=== PATIENT | female | born 1995 | race Caucasian/White ===

== ENCOUNTER → 2021-02-22 09:34 | Outpatient (CLI) | payer OTHER, SELFPAY ==
--- NOTE | 2021-02-22 09:38 | DI.US.S_ITS ---
PROCEDURE: US OB <= 14 WEEKS FETUS INDICATIONS: Early dating viability OUTSIDE/PRIOR DATING DATA: Last menstrual period (LMP): 12/12/2020 LMP-based estimated date of delivery (VIVEK): 09/18/2021. First dating scan (date and location): 02/22/2021. Estimated date of delivery (VIVEK) from first dating scan: 10/18/2021. TECHNIQUE: Real-time scanning was performed of the fetus and maternal pelvic organs, with image documentation. Endovaginal scanning was also performed to better visualize the fetus and maternal ovaries. COMPARISON: None. FINDINGS: Embryo: Mean sac diameter of 12 mm corresponding to 6 weeks 0 days. Normal yolk sac. No pole at this time. Heart rate: N/a Measurement variability in dating: +/- 4 weeks by LMP, +/- 7 days by mean sac diameter (use before 6 weeks gestation if crown-rump length not able to be measured), +/- 5 days by crown-rump length (up to 8 weeks 6 days gestation), +/- 7 days by crown-rump length (up to 13 weeks 6 days gestation). Maternal organs: Ovaries IMPRESSION: Single intrauterine gestational sac with mean diameter 12 mm corresponding to 6 weeks 0 days and no embryo seen at this time. Recommend follow-up ultrasound in 1 week to assess embryonic viability. Dictated by: Nahum TOPETE on 02/22/2021 at 12:09 Transcribed by: on 02/22/2021 at 12:12 Approved by: Bala Wesley M.D. on 02/22/2021 at 15:20
== END ==
PROVIDERS: PCP Family Medicine; Referring Provider Family Medicine; Visit Provider Family Medicine
DX: Z34.81 Encounter for supervision of other normal pregnancy, first trimester (principal); Z3A.01 Less than 8 weeks gestation of pregnancy
CPT/HCPCS: 76801; 76817

== ENCOUNTER → 2021-03-02 10:35 | Outpatient (CLI) | payer OTHER, SELFPAY ==
--- NOTE | 2021-03-02 10:36 | DI.US.S_ITS ---
PROCEDURE: US OB <= 14 WEEKS FETUS INDICATIONS: 1 WEEK F/U OUTSIDE/PRIOR DATING DATA: Last menstrual period (LMP): 12/12/2020. LMP-based estimated date of delivery (VIVEK): 09/18/2021. First dating scan (date and location): [facility] 02/22/2021. Estimated date of delivery (VIVEK) from first dating scan: 10/18/2021. TECHNIQUE: Real-time scanning was performed of the fetus and maternal pelvic organs, with image documentation. Endovaginal scanning was also performed to better visualize the fetus and maternal ovaries. COMPARISON: [facility], , OB <= 14 WEEKS FETUS, 02/22/2021, 9:08. FINDINGS: Embryo: A single living intrauterine gestation is present with a crown-rump length of 8 mm, corresponding to a 6 week 5 day gestation. Heart rate: 122 Measurement variability in dating: +/- 4 weeks by LMP, +/- 7 days by mean sac diameter (use before 6 weeks gestation if crown-rump length not able to be measured), +/- 5 days by crown-rump length (up to 8 weeks 6 days gestation), +/- 7 days by crown-rump length (up to 13 weeks 6 days gestation). Maternal organs: Ovaries corpus luteal cyst on the left is present. . IMPRESSION: 1. Single living intrauterine gestation. Dictated by: Aviva Allan M.D. on 03/02/2021 at 12:09 Approved by: Aviva Allan M.D. on 03/02/2021 at 12:10
== END ==
PROVIDERS: PCP Family Medicine; Referring Provider Family Medicine; Visit Provider Family Medicine
DX: Z36.2 Encounter for other antenatal screening follow-up (principal); Z3A.01 Less than 8 weeks gestation of pregnancy
CPT/HCPCS: 76801; 76817

== ENCOUNTER → 2021-03-25 12:01 | Outpatient (CLI) | payer OTHER, SELFPAY ==
[2021-03-25 13:50] LABS: Add Manual Diff / Slide Review NO; Basophils Absolute Auto 0 /uL (0-100); Basophils Percent Auto 0.3 % (0-2); Eosinophils Absolute Auto 0 /uL (0-450); Eosinophils Percent Auto 0.5 % (2-4); Hematocrit 38.7 % (36-46); Hemoglobin 13.1 g/dL (12.0-16.0); Lymphocytes Absolute Auto 1800 /uL (1100-4500); Lymphocytes Percent Auto 23.5 % (25-40); Mean Corpuscular Hemoglobin 29.8 PG (26-34); Mean Corpuscular Volume 87.9 fL (80-100); Monocytes Absolute Auto 700 /uL (0-900); Monocytes Percent Auto 8.4 % (3-14); Neutrophils Absolute Auto 5200 /uL (1500-7000); Neutrophils Percent Auto 67.3 % (50-75); Platelet Count 197 X10^3/uL (150-400); Red Blood Cell Count 4.41 X10^6/uL (4.0-5.2); Red Cell Distribution Width 13.6 % (11.6-14.8); White Blood Cell Count 7.8 X10^3/uL (4.5-11.0)
[2021-03-25 14:22] LABS: Appearance Urine UA CLEAR; Color Urine UA YELLOW; Leukocyte Esterase Urine UA TRACE (NEGATIVE); Nitrite Urine UA NEGATIVE (Negative); Protein Urine UA NEGATIVE (Negative); Urobilinogen Urine UA 0.2 E.U./dL (0.2)
[2021-03-25 14:23] LABS: Glucose Urine UA NEGATIVE (Negative); Ketones Urine UA NEGATIVE (NEGATIVE); Occult Blood Urine UA Negative (Negative); pH Urine UA 6.5 (4.5-8.0)
[2021-03-25 14:24] LABS: Bacteria Urine Occasional (0-1); Bilirubin Urine UA Negative (NEGATIVE); RBC Urine 0-1/HPF (0-5/HPF); Squamous Epithelial Cell Urine 1-5 /HPF (0-5/HPF); WBC Urine 1-5/HPF (0-5/HPF)
[2021-03-25 20:36] LABS: Hepatitis B Surface Antigen NEGATIVE s/c (NEGATIVE)
[2021-03-25 20:53] LABS: Hep C Virus Ab w/Reflex Quant NEGATIVE s/c (NEGATIVE)
[2021-03-25 20:54] LABS: HIV 1 & 2 Ab/Ag 4th Gen Combo NEGATIVE (NEGATIVE)
[2021-03-26 08:46] LABS: RPR Screen Non Reactive (Non Reactive); Varicella IgG Antibody 232 index (Immune >165)
== END ==
PROVIDERS: PCP Family Medicine; Referring Provider Family Medicine; Visit Provider Family Medicine
DX: Z34.81 Encounter for supervision of other normal pregnancy, first trimester (principal)
CPT/HCPCS: 36415; 80055; 81003; 81015; 86787; 86803; 86850; 86900; 86901; 87086; 87389

== ENCOUNTER → 2021-05-12 09:49 | Outpatient (CLI) | payer OTHER, SELFPAY ==
[2021-05-15 13:42] LABS: AFP, Serum 51.6 ng/mL (.); Calc Gestational Age EDD (.); Estriol, Free 0.13 ng/mL (.); Inhibin A, Dimeric 199.72 pg/mL (.); Inhibin A, MoM 1.24 (.); Maternal Ethnicity Caucasian (.); Maternal Weight 140 lbs (.); Number of Fetuses No (.); OSBR Risk 1 IN 6499 (.); Results Report (.); Test Results *Screen Negative* (.); hCG, MoM 0.96 (.); hCG, Serum 31301 mIU/mL (.)
== END ==
PROVIDERS: PCP Family Medicine; Referring Provider Family Medicine; Visit Provider Family Medicine
DX: Z34.82 Encounter for supervision of other normal pregnancy, second trimester (principal); Z3A.18 18 weeks gestation of pregnancy
CPT/HCPCS: 36415; 82105; 82677; 84702; 86336

== ENCOUNTER → 2021-06-04 07:56 | Outpatient (CLI) | payer OTHER, SELFPAY ==
--- NOTE | 2021-06-04 07:57 | DI.US.S_ITS ---
PROCEDURE: US OB >= 14 WEEKS FETUS INDICATIONS: ANATOMY OUTSIDE/PRIOR DATING DATA: Last menstrual period (LMP): 12/12/2020 . LMP-based estimated date of delivery (VIVEK): 09/18/2021 . First dating scan (date and location): 02/23/2020 . Estimated date of delivery (VIVEK) from first dating scan: 10/18/2021 . TECHNIQUE: Real-time scanning was performed of the fetus, with image documentation and biometric measurements. Endovaginal scanning: None COMPARISON: None. FINDINGS: General: A single living intrauterine gestation is present. Presentation: Variable. Placenta: Placental position is fundal , without previa. Amniotic fluid index: 14.9 cm, normal range is 5-24 cm. heart rate: 150 beats per minute. Maternal cervical canal: 3.1 cm long. Normal lower limit is 2.5 cm. biometrics: Biparietal diameter: 4.9 cm, 20 week 6 day Head circumference: 18.5 cm, 20 week 6 day Abdominal circumference: 16.2 cm, 21 week 2 day Femur length: 3.3 cm, 20 week 3 day Estimated gestational age from initial scan: 20 week 4 day Composite gestational age from present scan: 20 week 6 day Estimated weight and percentile: 386 g, 64 percentile Measurement variability for biometric dating: +/- 7 days from 14 weeks to 15 weeks 6 days gestation, +/- 10 days from 16 weeks to 21 weeks 6 days gestation, +/- 2 weeks from 22 weeks to 27 weeks 6 days gestation, +/- 3 weeks for 28 weeks gestation or later. weight reference: 4500 g or EFW >90/95% is considered macrosomia or large for gestational age. EFW <10% is small for gestational age. EFW 5% or less is considered intra-uterine growth restriction. Anatomic survey: Neuro: Ventricles are non-dilated at less than 10 mm. Cisterna magna is normal at 3-11 mm. Cerebellum is normal in size and morphology. Nuchal skin fold: Normal at less than 6 mm between 14-21 weeks gestational age. Face: Nose and lips, facial profile are normal. Possible prominent tongue Spine: No evidence for spina bifida. Heart: 4-chambered heart is present, with normal ventricular outflow tracts. Diaphragm: Diaphragm is intact. Stomach: Left-sided stomach is present. Kidneys: No hydronephrosis. Normal is less than 5 mm in 2nd trimester, less than 7 mm in 3rd trimester. Cord: 3-vessel cord has orthotopic insertion. Bladder: Normal in size. Extremities: All 4 extremities identified. IMPRESSION: Single live intrauterine consistent with a 20 week 6 day gestation by current ultrasound, concordant with initial dating scan. Anatomic survey shows prominence of the tongue in the oral cavity without protrusion, raising the possibility mild macroglossia. Anatomic survey otherwise unremarkable. Approved by: Víctor Ponce M.D. on 06/04/2021 at 10:54
== END ==
PROVIDERS: PCP Family Medicine; Referring Provider Family Medicine; Visit Provider Family Medicine
DX: Z36.89 Encounter for other specified antenatal screening (principal); Z3A.20 20 weeks gestation of pregnancy
CPT/HCPCS: 76811

== ENCOUNTER → 2021-07-19 15:19 | Outpatient (CLI) | payer OTHER, SELFPAY ==
[2021-07-19 17:20] LABS: Hematocrit 31.9 % (36-46); Hemoglobin 10.9 g/dL (12.0-16.0)
[2021-07-19 18:00] LABS: GTT (PREG) 1 Hour PP 50gm Dose 88 mg/dL (76-139)
== END ==
PROVIDERS: PCP Family Medicine; Referring Provider Family Medicine; Visit Provider Family Medicine
DX: Z34.92 Encounter for supervision of normal pregnancy, unspecified, second trimester (principal); Z3A.26 26 weeks gestation of pregnancy
CPT/HCPCS: 36415; 82950; 85014; 85018